=== PATIENT | female | born 1960 | race Caucasian/White ===

== ENCOUNTER 2018-02-02 19:56 | Emergency (ER) | payer MEDICARE ==
[~2018-02-02] VITALS: Ht 157.5 cm; Wt 65.9 kg
[2018-02-02] MEDS ORDERED: CLON0.5T12 PO (20:19)
[2018-02-02] MEDS ORDERED: TRAZ-220 PO (20:19)
[2018-02-02] MEDS ORDERED: OMEP20CA10 PO (20:19)
[2018-02-02] MEDS ORDERED: FLUT16H NASAL (20:19)
[2018-02-02] MEDS ORDERED: ESCI10TA54 PO (20:19)
[2018-02-02] MEDS ORDERED: MAALOX/LIDOCAINE/NYSTATIN SUSP 5 ML ORAL.SYG MM ONE (22:15)
[2018-02-02 23:25] VITALS: BP 149/92
== END 2018-02-02 23:29 | disposition home or self-care (01) ==
LOC: EMS 20:00
DX: K14.6 Glossodynia (principal); F41.9 Anxiety disorder, unspecified; K21.9 Gastro-esophageal reflux disease without esophagitis; F32.9 Major depressive disorder, single episode, unspecified; Z88.8 Allergy status to other drugs, medicaments and biological substances
CPT/HCPCS: 99283